=== PATIENT | male | born 1965 | race Caucasian/White ===

== ENCOUNTER 2019-06-04 12:58 | Emergency (ER) | payer SELFPAY ==
[~2019-06-04] VITALS: Ht 170.2 cm; Wt 75.0 kg
[2019-06-04 13:08] VITALS: BP 115/84; TEMP 98
[2019-06-04] MEDS ORDERED: NORCO 325 MG-7.1 TAB PO (15:18)
[2019-06-04 16:10] VITALS: PULSE 90
== END 2019-06-04 16:10 | disposition home or self-care (01) ==
LOC: COL.ER 12:58
DX: S52.125A Nondisplaced fracture of head of left radius, initial encounter for closed fracture (principal); F17.210 Nicotine dependence, cigarettes, uncomplicated; W00.0XXA Fall on same level due to ice and snow, initial encounter; W22.8XXA Striking against or struck by other objects, initial encounter; Y92.009 Unspecified place in unspecified non-institutional (private) residence as the place of occurrence of the external cause
CPT/HCPCS: Q4050